=== PATIENT | male | born 1945 | race Caucasian/White ===

== ENCOUNTER 2017-10-18 16:36 | Inpatient (IN) | payer MEDICARE, OTHER ==
[~2017-10-18] VITALS: Ht 175.3 cm; Wt 66.7 kg
[2017-10-18 20:24] LABS: Basophils # (auto) 0 uL; Basophils % (auto) 0.3 % (0.0-2.0); Eosinophils # (auto) 0 uL; Hematocrit 27.9 % (41.0-53.0); Hemoglobin 9.3 g/dL (13.5-17.5); Lymphocytes # (auto) 1.3 uL; Lymphocytes % (auto) 11.8 % (10.0-50.0); Mean Corpuscular Hemoglobin 31.6 pg (28.0-32.0); Mean Corpuscular Hgb Conc. 33.3 g/dL (32.0-36.0); Mean Corpuscular Volume 94.7 fL (80.0-100.0); Monocytes # (auto) 1.2 uL; Monocytes % (auto) 10.8 % (0.0-12.0); Neutrophils # (auto) 8.6 uL; Neutrophils % (auto) 77.1 % (37.0-80.0); Nucleated Red Blood Cells % 0.1 %; Platelet Count (auto) 245 10^3/uL (140-450); Red Blood Cells 2.95 10^6/uL (4.5-5.90); Red Cell Distribution Width 13.4 % (11.8-14.3); White Blood Cell 11.2 10^3/uL (4.4-10.8)
[2017-10-18 20:47] LABS: INR 2.12 (0.9-1.15); Partial Thromboplastin Time 52.3 sec (22.64-33.71); Prothrombin Time 23.3 sec (9.37-12.3)
[2017-10-18 21:01] LABS: Albumin 3.3 g/dL (3.4-5.0); BUN/Creatinine Ratio 16.7; Bilirubin, Total 0.2 mg/dL (0.2-1.0); Calcium 8.1 mg/dL (8.5-10.1); Magnesium 2.6 mg/dL (1.6-2.6); Potassium 3.7 mmol/L (3.5-5.1); Total Protein 7.3 g/dL (6.4-8.2)
[2017-10-19] MEDS ORDERED: TEMAZEPAM 15 MG CAP PO ONE (02:30)
[2017-10-19] MEDS ORDERED: HYDROcodone-ACET 5/325MG TAB PO PRN (03:00)
[2017-10-19] MEDS ORDERED: NITROGLYCERIN 0.4 MG SL TAB SL PRN (03:00)
[2017-10-19] MEDS ORDERED: ONDANSETRON HCL 4 MG/2 ML VIAL IV PRN (03:00)
[2017-10-19] MEDS ORDERED: ACETAMINOPHEN 500 MG TAB PO PRN (03:00)
[2017-10-19 03:55] LABS: Urine Amorphous Crystal FEW /hpf (None Seen); Urine Bacteria FEW /hpf (None Seen); Urine Blood TRACE /uL (Negative); Urine Hyaline Cast FEW /lpf (0 - 2); Urine Mucus FEW (None Seen); Urine Specific Gravity 1.014 (1.001-1.035); Urine WBC 2 /hpf (0 - 3)
[2017-10-19 04:16] LABS: Basophils # (auto) 0 uL; Basophils % (auto) 0.2 % (0.0-2.0); Eosinophils # (auto) 0 uL; Eosinophils % (auto) 0.1 % (0.0-7.0); Hematocrit 27.9 % (41.0-53.0); Hemoglobin 9.4 g/dL (13.5-17.5); Lymphocytes # (auto) 2.2 uL; Lymphocytes % (auto) 18.7 % (10.0-50.0); Mean Corpuscular Hemoglobin 31.4 pg (28.0-32.0); Mean Corpuscular Hgb Conc. 33.7 g/dL (32.0-36.0); Mean Corpuscular Volume 93.3 fL (80.0-100.0); Monocytes # (auto) 1.3 uL; Monocytes % (auto) 10.7 % (0.0-12.0); Neutrophils # (auto) 8.4 uL; Neutrophils % (auto) 70.3 % (37.0-80.0); Nucleated Red Blood Cells % 0.1 %; Platelet Count (auto) 233 10^3/uL (140-450); Red Blood Cells 2.99 10^6/uL (4.5-5.90); Red Cell Distribution Width 13.4 % (11.8-14.3); White Blood Cell 11.9 10^3/uL (4.4-10.8)
[2017-10-19 04:32] LABS: Calcium 8.3 mg/dL (8.5-10.1); Potassium 3.3 mmol/L (3.5-5.1)
[2017-10-19 04:34] LABS: BUN/Creatinine Ratio 18.1
[2017-10-19] MEDS ORDERED: FUROSEMIDE 20 MG/2 ML VIAL IV ONE (05:00)
[2017-10-19] MEDS: ASPirin-EC 81 mg tab PO SCH (06:49)
[2017-10-19 08:53] VITALS: BP 115/60
[2017-10-19] MEDS ORDERED: METOPROLOL TARTRATE 25 MG TAB PO SCH (10:00)
[2017-10-19] MEDS ORDERED: ASPI81TA27 PO (15:27)
[2017-10-19] MEDS ORDERED: LISI-275 PO (15:27)
[2017-10-19] MEDS ORDERED: RISP0.5T12 PO (15:28)
[2017-10-19] MEDS ORDERED: FURO40TA4 PO (15:28)
[2017-10-19] MEDS ORDERED: FAMO-12 PO (15:29)
[2017-10-19] MEDS ORDERED: CARV6.2551 PO (15:29)
[2017-10-19] MEDS ORDERED: WARF5TAB71 PO (15:30)
[2017-10-19 17:00] VITALS: BP 156/63
[2017-10-19] MEDS ORDERED: HALOPERIDOL LACTATE 5 MG/ML INJ VIAL IM PRN (17:45)
[2017-10-19 22:00] VITALS: BP 121/69
[2017-10-19] MEDS: ATORVASTATIN 20 MG TAB PO SCH (22:32)
[2017-10-19] MEDS: CARVEDILOL 3.125 MG TAB PO SCH (22:32)
[2017-10-20 03:06] LABS: Urine Bacteria FEW /hpf (None Seen); Urine Blood 3+ /uL (Negative); Urine Mucus FEW (None Seen); Urine Specific Gravity 1.014 (1.001-1.035); Urine WBC 41 /hpf (0 - 3)
[2017-10-20 03:16] LABS: Protein, Urine 94.4 mg/dL (0.0-11.9)
[2017-10-20 05:00] VITALS: BP 124/54
[2017-10-20 05:36] LABS: Basophils # (auto) 0 uL; Basophils % (auto) 0.3 % (0.0-2.0); Eosinophils # (auto) 0 uL; Hematocrit 29.8 % (41.0-53.0); Hemoglobin 10.2 g/dL (13.5-17.5); Lymphocytes # (auto) 1.8 uL; Lymphocytes % (auto) 15.3 % (10.0-50.0); Mean Corpuscular Hemoglobin 31.5 pg (28.0-32.0); Mean Corpuscular Hgb Conc. 34.1 g/dL (32.0-36.0); Mean Corpuscular Volume 92.4 fL (80.0-100.0); Monocytes # (auto) 1.5 uL; Monocytes % (auto) 13.1 % (0.0-12.0); Neutrophils # (auto) 8.2 uL; Neutrophils % (auto) 71.3 % (37.0-80.0); Nucleated Red Blood Cells % 0.1 %; Platelet Count (auto) 257 10^3/uL (140-450); Red Blood Cells 3.23 10^6/uL (4.5-5.90); Red Cell Distribution Width 13.2 % (11.8-14.3); White Blood Cell 11.4 10^3/uL (4.4-10.8)
[2017-10-20 06:16] LABS: Albumin 3.1 g/dL (3.4-5.0); BUN/Creatinine Ratio 22.8; Bilirubin, Direct 0.1 mg/dL (0-0.2); Bilirubin, Total 0.3 mg/dL (0.2-1.0); Calcium 8.3 mg/dL (8.5-10.1); Phosphorus 3.1 mg/dL (2.5-4.90); Potassium 3.3 mmol/L (3.5-5.1); Total Protein 7.2 g/dL (6.4-8.2); Uric Acid 9.7 mg/dL (3.5-7.2)
[2017-10-20 06:54] LABS: % Iron Saturation 3.6 % (20-55)
[2017-10-20 09:00] VITALS: BP 115/54
[2017-10-20] MEDS: cefTRIAXone 1GM/10ml IVPUSH 10 ML IV SCH (09:14)
[2017-10-20] MEDS: ASPirin-EC 81 mg tab PO SCH (09:14)
[2017-10-20] MEDS: CARVEDILOL 3.125 MG TAB PO SCH ×2 (09:15→21:32)
[2017-10-20] MEDS ORDERED: POTASSIUM CHL 20 Meq TABLET PO ONE (11:00)
[2017-10-20] MEDS: CLINDAMYCIN 600MG IV 50 ML IV SCH ×2 (12:00→19:57)
[2017-10-20 13:00] VITALS: BP 123/57
[2017-10-20 17:00] VITALS: BP 120/53
[2017-10-20] MEDS: ATORVASTATIN 20 MG TAB PO SCH (21:32)
[2017-10-20 22:33] VITALS: BP 122/53
[2017-10-21] MEDS: CLINDAMYCIN 600MG IV 50 ML IV SCH ×3 (03:48→20:18)
[2017-10-21 05:13] VITALS: BP 129/59
[2017-10-21 06:37] LABS: Basophils # (auto) 0 uL; Eosinophils # (auto) 0 uL; Hemoglobin 8.1 g/dL (13.5-17.5); Monocytes # (auto) 1.7 uL; White Blood Cell 11.6 10^3/uL (4.4-10.8)
[2017-10-21 06:40] LABS: Basophils % (auto) 0.1 % (0.0-2.0); Hematocrit 24.2 % (41.0-53.0); Lymphocytes % (auto) 17.3 % (10.0-50.0); Mean Corpuscular Hemoglobin 31.1 pg (28.0-32.0); Mean Corpuscular Hgb Conc. 33.6 g/dL (32.0-36.0); Mean Corpuscular Volume 92.6 fL (80.0-100.0); Monocytes % (auto) 14.5 % (0.0-12.0); Neutrophils # (auto) 7.9 uL; Neutrophils % (auto) 68.1 % (37.0-80.0); Platelet Count (auto) 255 10^3/uL (140-450); Red Blood Cells 2.61 10^6/uL (4.5-5.90); Red Cell Distribution Width 13.3 % (11.8-14.3)
[2017-10-21 07:04] LABS: BUN/Creatinine Ratio 23.5; Calcium 8.3 mg/dL (8.5-10.1); Potassium 3.6 mmol/L (3.5-5.1)
[2017-10-21 09:00] VITALS: BP 130/48
[2017-10-21] MEDS: cefTRIAXone 1GM/10ml IVPUSH 10 ML IV SCH (09:27)
[2017-10-21] MEDS: CARVEDILOL 3.125 MG TAB PO SCH ×2 (10:00→22:27)
[2017-10-21] MEDS: ASPirin-EC 81 mg tab PO SCH (10:03)
[2017-10-21] MEDS ORDERED: ALBUTEROL SULF 2.5 MG/0.5ML(0.5%) NEB SOLN NEB PRN (12:30)
[2017-10-21 12:39] LABS: % Iron Saturation 7.7 % (20-55)
[2017-10-21 13:40] VITALS: BP 125/49
[2017-10-21 17:30] VITALS: BP 144/63
[2017-10-21 18:56] VITALS: BP 144/63
[2017-10-21 22:00] VITALS: BP 135/44
[2017-10-21] MEDS: ATORVASTATIN 20 MG TAB PO SCH (22:28)
[2017-10-22] MEDS: CLINDAMYCIN 600MG IV 50 ML IV SCH ×3 (03:33→20:01)
[2017-10-22 05:00] VITALS: BP 131/67
[2017-10-22 05:39] LABS: Basophils # (auto) 0 uL; Basophils % (auto) 0.2 % (0.0-2.0); Eosinophils # (auto) 0 uL; Eosinophils % (auto) 0.2 % (0.0-7.0); Hematocrit 29.4 % (41.0-53.0); Lymphocytes # (auto) 2.1 uL; Lymphocytes % (auto) 25.7 % (10.0-50.0); Mean Corpuscular Hgb Conc. 34.1 g/dL (32.0-36.0); Mean Corpuscular Volume 91.1 fL (80.0-100.0); Monocytes # (auto) 1.1 uL; Monocytes % (auto) 14.3 % (0.0-12.0); Neutrophils # (auto) 4.8 uL; Neutrophils % (auto) 59.6 % (37.0-80.0); Nucleated Red Blood Cells % 0.1 %; Platelet Count (auto) 264 10^3/uL (140-450); Red Blood Cells 3.23 10^6/uL (4.5-5.90); Red Cell Distribution Width 13.2 % (11.8-14.3)
[2017-10-22 05:59] LABS: Albumin 2.8 g/dL (3.4-5.0); BUN/Creatinine Ratio 26.7; Bilirubin, Total 0.3 mg/dL (0.2-1.0); Calcium 8.2 mg/dL (8.5-10.1); Magnesium 2.5 mg/dL (1.6-2.6); Phosphorus 2.9 mg/dL (2.5-4.90); Potassium 3.5 mmol/L (3.5-5.1); Total Protein 7.2 g/dL (6.4-8.2)
[2017-10-22 08:32] VITALS: BP 122/48
[2017-10-22] MEDS: CARVEDILOL 3.125 MG TAB PO SCH ×2 (09:55→21:44)
[2017-10-22] MEDS: ASPirin-EC 81 mg tab PO SCH (09:56)
[2017-10-22] MEDS: cefTRIAXone 1GM/10ml IVPUSH 10 ML IV SCH (09:56)
[2017-10-22 12:33] VITALS: BP_SYST 127; BP_SYST 145; BP_DIAS 54; BP_DIAS 66
[2017-10-22 17:04] VITALS: BP 129/60
[2017-10-22 20:00] VITALS: BP 159/68
[2017-10-22] MEDS: ATORVASTATIN 20 MG TAB PO SCH (21:44)
[2017-10-22 22:00] VITALS: BP 159/68
[2017-10-23] MEDS: CLINDAMYCIN 600MG IV 50 ML IV SCH (04:12)
[2017-10-23 05:00] VITALS: BP 154/70
[2017-10-23 05:48] LABS: Basophils # (auto) 0 uL; Basophils % (auto) 0.2 % (0.0-2.0); Eosinophils # (auto) 0 uL; Eosinophils % (auto) 0.5 % (0.0-7.0); Hemoglobin 10.8 g/dL (13.5-17.5); Lymphocytes # (auto) 2.2 uL; Lymphocytes % (auto) 21.9 % (10.0-50.0); Mean Corpuscular Hemoglobin 31.1 pg (28.0-32.0); Mean Corpuscular Hgb Conc. 33.8 g/dL (32.0-36.0); Monocytes # (auto) 1.5 uL; Monocytes % (auto) 15.2 % (0.0-12.0); Neutrophils # (auto) 6.2 uL; Neutrophils % (auto) 62.2 % (37.0-80.0); Platelet Count (auto) 321 10^3/uL (140-450); Red Blood Cells 3.48 10^6/uL (4.5-5.90); Red Cell Distribution Width 13.4 % (11.8-14.3)
[2017-10-23 06:17] LABS: Magnesium 2.4 mg/dL (1.6-2.6); Phosphorus 2.3 mg/dL (2.5-4.90)
[2017-10-23 08:00] VITALS: BP 147/66
[2017-10-23] MEDS: cefTRIAXone 1GM/10ml IVPUSH 10 ML IV SCH (10:10)
[2017-10-23] MEDS: CARVEDILOL 3.125 MG TAB PO SCH (10:13)
[2017-10-23] MEDS: ASPirin-EC 81 mg tab PO SCH (10:13)
[2017-10-23 10:25] VITALS: BP 147/66
== END 2017-10-23 11:25 | disposition home or self-care (01) | DRG 871 ==
LOC: ER 16:36 → EDBD 16:36 → TELE 16:37 → TELE-WESTW 10-19 08:39 → TELE-CENTR 10-19 13:42
PROVIDERS: ADMIT Nurse Practitioner Family; ATTEND Internal Medicine
DX: A41.01 Sepsis due to Methicillin susceptible Staphylococcus aureus (principal); N17.0 Acute kidney failure with tubular necrosis; I21.4 Non-ST elevation (NSTEMI) myocardial infarction; I50.23 Acute on chronic systolic (congestive) heart failure; E44.0 Moderate protein-calorie malnutrition; D68.69 Other thrombophilia; N18.3 Chronic kidney disease, stage 3 (moderate); D68.9 Coagulation defect, unspecified; I13.0 Hypertensive heart and chronic kidney disease with heart failure and stage 1 through stage 4 chronic kidney disease, or unspecified chronic kidney disease; N39.0 Urinary tract infection, site not specified; I48.91 Unspecified atrial fibrillation; D64.9 Anemia, unspecified; J44.9 Chronic obstructive pulmonary disease, unspecified; I25.10 Atherosclerotic heart disease of native coronary artery without angina pectoris; F03.90 Unspecified dementia, unspecified severity, without behavioral disturbance, psychotic disturbance, mood disturbance, and anxiety; I25.5 Ischemic cardiomyopathy; R32 Unspecified urinary incontinence; F17.200 Nicotine dependence, unspecified, uncomplicated; R73.9 Hyperglycemia, unspecified; Z88.5 Allergy status to narcotic agent; Z79.01 Long term (current) use of anticoagulants; Z79.82 Long term (current) use of aspirin; Z79.899 Other long term (current) drug therapy; Z91.81 History of falling
CPT/HCPCS: 36415; 51702; 70450; 71010; 76775; 80048; 80053; 80076; 81001; 82533; 82570; 83036; 83540; 83550; 83735; 83880; 84100; 84156; 84300; 84484; 84550; 85025; 85610; 85730; 87040; 87077; 87086; 87088; 87186; 93005; 93306; 96374; 97116; 97163; 97530; J3490

== ENCOUNTER 2017-12-10 15:20 | Inpatient (IN) | payer MEDICARE, OTHER ==
[2017-12-10] VITALS (8 sets, daily range): BP systolic 123–142; BP diastolic 49–67
[~2017-12-10] VITALS: Ht 177.8 cm; Wt 81.6 kg
[~2017-12-10 15:20] MED LIST: ASPI81TA27 PO; CARV6.2551 PO; FAMO-12 PO; FURO40TA4 PO; LISI-275 PO; RISP0.5T12 PO; WARF5TAB71 PO
[2017-12-10] MEDS ORDERED: SODIUM CHLORIDE 0.9% 1,000 ML IV ONE (15:50)
[2017-12-10] MEDS ORDERED: MULTTAB99 PO (16:24)
[2017-12-10] MEDS ORDERED: ISOS1TAB37 PO (16:25)
[2017-12-10] MEDS ORDERED: AMI200T PO (16:28)
[2017-12-10 16:30] LABS: Basophils # (auto) 0.1 uL; Basophils % (auto) 0.5 % (0.0-2.0); Eosinophils # (auto) 0 uL; Lymphocytes # (auto) 1.4 uL; Mean Corpuscular Hemoglobin 31.6 pg (28.0-32.0); Monocytes # (auto) 0.9 uL; Monocytes % (auto) 6.9 % (0.0-12.0); Neutrophils % (auto) 81.2 % (37.0-80.0); Nucleated Red Blood Cells % 0.1 %; Platelet Count (auto) 291 10^3/uL (140-450)
[2017-12-10 16:31] LABS: Eosinophils % (auto) 0.3 % (0.0-7.0); Hematocrit 18.6 % (41.0-53.0); Lymphocytes % (auto) 11.1 % (10.0-50.0); Mean Corpuscular Volume 95.7 fL (80.0-100.0); Neutrophils # (auto) 10.2 uL; Red Blood Cells 1.94 10^6/uL (4.5-5.90); White Blood Cell 12.6 10^3/uL (4.4-10.8)
[2017-12-10 16:35] LABS: Hemoglobin 6.1 g/dL (13.5-17.5)
[2017-12-10 17:00] LABS: INR > 10 (0.9-1.15)
[2017-12-10 17:08] LABS: BUN/Creatinine Ratio 28.4; Bilirubin, Total 0.3 mg/dL (0.2-1.0); Potassium 4.2 mmol/L (3.5-5.1); Total Protein 6.7 g/dL (6.4-8.2)
[2017-12-10] MEDS ORDERED: PHYTONADIONE (VIT K)10 MG/ML 1ML VIAL IV ONE (17:15)
[2017-12-10] MEDS ORDERED: HYDROcodone-ACET 10/325MG TAB PO ONE (18:45)
[2017-12-10 21:17] LABS: Urine Bacteria NONE SEEN /hpf (None Seen); Urine Blood Negative /uL (Negative); Urine Mucus FEW (None Seen); Urine Specific Gravity 1.011 (1.001-1.035); Urine WBC <1 /hpf (0 - 3)
[2017-12-10 21:39] LABS: Alcohol, Urine < 3.0 mg/dL (0-5); Amphetamine Screen, Urine NEGATIVE (NEGATIVE); Barbiturate Scree,Urine NEGATIVE (NEGATIVE); Benzodiazephine Screen, Urine NEGATIVE (NEGATIVE); Cannabinoid Screen, Urine NEGATIVE (NEGATIVE); Cocaine Screen, Urine NEGATIVE (NEGATIVE); Opiate Scree,Urine NEGATIVE (NEGATIVE); Phencyclidine Screen, Urine NEGATIVE (NEGATIVE)
[2017-12-10] MEDS ORDERED: NITROGLYCERIN 0.4 MG SL TAB SL PRN (23:30)
[2017-12-10] MEDS ORDERED: SOD CHL 0.45% 1,000 ML IV ONE (23:30)
[2017-12-11] VITALS (18 sets, daily range): BP systolic 108–158; BP diastolic 45–88
[2017-12-11] MEDS: PANTOPRAZOLE 40 MG/10 ML VIAL IV SCH ×2 (03:00→10:46)
[2017-12-11 08:11] LABS: Basophils # (auto) 0.1 uL; Basophils % (auto) 0.6 % (0.0-2.0); Eosinophils # (auto) 0.2 uL; Eosinophils % (auto) 1.9 % (0.0-7.0); Hematocrit 25.4 % (41.0-53.0); Hemoglobin 8.9 g/dL (13.5-17.5); Lymphocytes # (auto) 1.7 uL; Lymphocytes % (auto) 18.2 % (10.0-50.0); Mean Corpuscular Hemoglobin 31.3 pg (28.0-32.0); Mean Corpuscular Volume 89.2 fL (80.0-100.0); Monocytes # (auto) 1.2 uL; Neutrophils # (auto) 6.2 uL; Neutrophils % (auto) 66.3 % (37.0-80.0); Platelet Count (auto) 252 10^3/uL (140-450); Red Blood Cells 2.85 10^6/uL (4.5-5.90); Red Cell Distribution Width 16.5 % (11.8-14.3); White Blood Cell 9.4 10^3/uL (4.4-10.8)
[2017-12-11 08:25] LABS: INR 1.35 (0.9-1.15); Prothrombin Time 14.8 sec (9.37-12.3)
[2017-12-11 08:38] LABS: Albumin 3.3 g/dL (3.4-5.0); BUN/Creatinine Ratio 27.8; Calcium 8.6 mg/dL (8.5-10.1); Potassium 4.6 mmol/L (3.5-5.1)
[2017-12-11 08:43] LABS: Bilirubin, Total 0.7 mg/dL (0.2-1.0); Total Protein 6.8 g/dL (6.4-8.2)
[2017-12-11] MEDS ORDERED: risperiDONE 1 MG TAB PO SCH (10:00)
[2017-12-11] MEDS ORDERED: PATIENTS OWN MEDICATION (Carvedilol 6.25 MG) PO SCH (10:00)
[2017-12-11] MEDS ORDERED: ISOSORBIDE MONONITRATE 60 MG TAB PO SCH (10:00)
[2017-12-11] MEDS ORDERED: AMIODARONE HCL 200 MG TAB PO SCH (10:00)
[2017-12-11] MEDS ORDERED: CARVEDILOL 3.125 MG TAB PO SCH (10:00)
[2017-12-11] MEDS ORDERED: RISPERIDONE 0.5 MG PO SCH (10:00)
[2017-12-11] MEDS ORDERED: ISOSORBIDE DINITRATE 60 MG PO SCH (10:00)
[2017-12-11] MEDS ORDERED: PANT40TA2 PO (12:19)
[2017-12-11 12:22] LABS: Hematocrit 24.9 % (41.0-53.0); Hemoglobin 8.7 g/dL (13.5-17.5)
[2017-12-11 14:27] LABS: Basophils # (auto) 0.1 uL; Eosinophils # (auto) 0.2 uL; Lymphocytes # (auto) 1.2 uL; Monocytes # (auto) 1.1 uL
[2017-12-11 14:29] LABS: Basophils % (auto) 0.9 % (0.0-2.0); Eosinophils % (auto) 1.9 % (0.0-7.0); Hematocrit 23.8 % (41.0-53.0); Hemoglobin 8.3 g/dL (13.5-17.5); Lymphocytes % (auto) 14.7 % (10.0-50.0); Mean Corpuscular Hgb Conc. 34.7 g/dL (32.0-36.0); Mean Corpuscular Volume 89.5 fL (80.0-100.0); Monocytes % (auto) 13.3 % (0.0-12.0); Neutrophils # (auto) 5.6 uL; Neutrophils % (auto) 69.2 % (37.0-80.0); Nucleated Red Blood Cells % 0.1 %; Platelet Count (auto) 242 10^3/uL (140-450); Red Blood Cells 2.66 10^6/uL (4.5-5.90); Red Cell Distribution Width 16.3 % (11.8-14.3); White Blood Cell 8.1 10^3/uL (4.4-10.8)
== END 2017-12-11 17:15 | disposition short-term general hospital (02) | DRG 377 ==
LOC: EDBD 15:20 → ER 15:20 → TELE 15:21 → TELE-WESTW 12-11 03:00
PROVIDERS: ADMIT Internal Medicine; ATTEND Internal Medicine
PROC: 30233L1 Transfusion of Nonautologous Fresh Plasma into Peripheral Vein, Percutaneous Approach (ICD-10-PCS; principal; 2017-12-10)
PROC: 30233N1 Transfusion of Nonautologous Red Blood Cells into Peripheral Vein, Percutaneous Approach (ICD-10-PCS; 2017-12-10)
PROC: 30233K1 Transfusion of Nonautologous Frozen Plasma into Peripheral Vein, Percutaneous Approach (ICD-10-PCS; 2017-12-10)
DX: K92.2 Gastrointestinal hemorrhage, unspecified (principal); G93.41 Metabolic encephalopathy; E44.0 Moderate protein-calorie malnutrition; I48.91 Unspecified atrial fibrillation; I13.0 Hypertensive heart and chronic kidney disease with heart failure and stage 1 through stage 4 chronic kidney disease, or unspecified chronic kidney disease; I50.9 Heart failure, unspecified; F03.90 Unspecified dementia, unspecified severity, without behavioral disturbance, psychotic disturbance, mood disturbance, and anxiety; I25.10 Atherosclerotic heart disease of native coronary artery without angina pectoris; I25.2 Old myocardial infarction; D62 Acute posthemorrhagic anemia; N19 Unspecified kidney failure; J44.9 Chronic obstructive pulmonary disease, unspecified; T45.515A Adverse effect of anticoagulants, initial encounter; Z79.01 Long term (current) use of anticoagulants; Z79.82 Long term (current) use of aspirin; Y92.89 Other specified places as the place of occurrence of the external cause; Z88.5 Allergy status to narcotic agent
CPT/HCPCS: 36415; 36430; 70450; 71045; 80053; 80307; 81001; 83735; 84443; 84484; 85014; 85018; 85025; 85610; 85730; 86850; 86900; 86901; 86920; 87081; 93005; 94761; 96361; 96374; C9113; J3430